=== PATIENT | male | born 1955 | race Caucasian/White ===

== ENCOUNTER 2019-06-14 23:49 | Emergency (ER) | payer MEDICARE ==
[~2019-06-14] VITALS: Ht 185.4 cm; Wt 115.9 kg
--- NOTE | 2019-06-15 00:06 | NUR ---
Last void approx. 1800, frequency has decreased in the past 24 hours. Pt has been taking PO Bactrim for 2 days with pain relief, but urinary output has decreased immensely since taking the abx. Pt says pain is now 5/10 with little to intermittent blood drops in the urine. Pt states he feels he has a full belly, nontender, but firm.
[2019-06-15 01:01] LABS: CLARITY,URINE CLEAR (Clear); COLOR,URINE YELLOW (Yellow); GLUCOSE, URINE NEGATIVE (Neg); KETONES,URINE NEGATIVE (Neg); LEUKOCYTE ESTERASE ,URINE NEGATIVE (Neg); NITRITES, URINE NEGATIVE (Neg); OCCULT BLOOD,URINE MODERATE (Neg); PROTEIN,URINE NEGATIVE (Neg); UROBILINOGEN,URINE 0.2 E.U/dL (0.2-1.0)
[2019-06-15 01:09] LABS: BACTERIA,URINE NONE SEEN /HPF (Neg); SQUAMOUS EPITHELIAL CELL,UR FEW /LPF (FEW); UA COLLECTION TYPE NON-SPECIFIED; WBC,URINE NONE SEEN /HPF (0-4)
[2019-06-15 02:20] VITALS: BP 121/70
== END 2019-06-15 02:23 | disposition home or self-care (01) ==
LOC: ER 23:50
DX: R33.9 Retention of urine, unspecified (principal)
CPT/HCPCS: 51702; 81001; 99284

== ENCOUNTER 2019-06-17 11:26 | Emergency (ER) | payer MEDICARE ==
[~2019-06-17] VITALS: Ht 185.4 cm; Wt 118.0 kg
[2019-06-17 11:27] VITALS: BP 160/102
[2019-06-17] MEDS ORDERED: FLO0.4C PO (13:31)
== END 2019-06-17 13:59 | disposition home or self-care (01) ==
LOC: ER 11:26
DX: Z46.6 Encounter for fitting and adjustment of urinary device (principal); Z79.899 Other long term (current) drug therapy
CPT/HCPCS: 99283

== ENCOUNTER 2019-10-31 21:30 | Emergency (ER) | payer MEDICARE ==
[~2019-10-31] VITALS: Ht 180.3 cm; Wt 113.0 kg
--- NOTE | 2019-10-31 22:21 | NUR ---
PT HAS A COLMENARES CATH IN PLACE. LAST PLACED WAS 3 MONTHS AGO IN JULY. THEY HAVE NOT CHANGED IT OUT SINCE. THEY WERE WENT WITH URINARY BAGS. THEY WERE NOT AWARE OF NEEDING IT TO BE CHANGED QMONTH.
[2019-10-31] MEDS ORDERED: LIDOcaine 2% 10ml TOPICAL JELLY (Urojet) MM STA (23:03)
[2019-10-31 23:11] LABS: ALANINE AMINOTRANSFERASE 25 U/L (12-78); ALBUMIN 4.1 G/DL (3.4-5.0); ALBUMIN/GLOBULIN RATIO 1.1 (1.1-1.5); ALKALINE PHOSPHATASE 558 IU/L (46-116); ANION GAP 9 (8-16); ASPARTATE AMINO TRANSFERASE 18 U/L (10-37); BILIRUBIN,TOTAL 0.5 MG/DL (0.1-1.0); BLOOD UREA NITROGEN 17 MG/DL (7-18); BUN/CREATININE RATIO 16.7 (5.4-32.0); CALCIUM 9.6 MG/DL (8.5-10.1); CHLORIDE 104 MMOL/L (99-107); CREATININE 1.02 MG/DL (0.60-1.10); GLUCOSE 119 MG/DL (70-104); POTASSIUM 4.2 MMOL/L (3.5-5.1); SODIUM 139 MMOL/L (135-145); TOTAL CARBON DIOXIDE 26.3 MMOL/L (24-32); TOTAL PROTEIN 7.7 G/DL (6.4-8.2); eGFR 73 ML/MIN
[2019-10-31 23:12] LABS: BASOPHILS # (AUTO) 0.1 X10'3 (0-0.2); BASOPHILS % (AUTO) 0.7 % (0-1); EOSINOPHILS # (AUTO) 0.2 X10'3 (0-0.9); EOSINOPHILS % (AUTO) 2.9 % (0-6); HEMATOCRIT 42.9 % (42.0-52.0); HEMOGLOBIN 15.1 g/dl (14.0-17.9); LYMPHOCYTES # (AUTO) 1.6 X10'3 (1.1-4.8); LYMPHOCYTES % (AUTO) 19.6 % (21-51); MEAN CORPUSCULAR HEMOGLOBIN 32.1 PG (27.0-31.0); MEAN CORPUSCULAR HGB CONC 35.3 g/dL (33.0-36.5); MEAN CORPUSCULAR VOLUME 91.1 FL (78-98); MEAN PLATELET VOLUME 9.6 FL (7.4-10.4); MONOCYTES # (AUTO) 0.5 X10'3 (0-0.9); MONOCYTES % (AUTO) 5.8 % (2-12); NEUTROPHILS # (AUTO) 5.7 X10'3 (1.8-7.7); PLATELET COUNT 145 X10'3 (140-440); RED BLOOD COUNT 4.71 X10'6 (4.70-6.10); RED CELL DISTRIBUTION WIDTH 13.8 % (11.5-14.5)
[2019-10-31 23:40] VITALS: BP 158/102
[2019-10-31 23:57] LABS: COLOR,URINE YELLOW (Yellow); GLUCOSE, URINE NEGATIVE (Neg); KETONES,URINE NEGATIVE (Neg); LEUKOCYTE ESTERASE ,URINE NEGATIVE (Neg); NITRITES, URINE POSITIVE (Neg); OCCULT BLOOD,URINE LARGE (Neg); PROTEIN,URINE NEGATIVE (Neg); UROBILINOGEN,URINE 0.2 E.U/dL (0.2-1.0)
[2019-11-01] LABS: CLARITY,URINE SLIGHTLY CLOUDY (Clear); UA COLLECTION TYPE STRAIGHT CATH
[2019-11-01 00:05] LABS: BACTERIA,URINE NONE SEEN /HPF (Neg); MUCUS STRANDS NONE SEEN /LPF (Neg); RBC,URINE 20-50 /HPF (0-2); SQUAMOUS EPITHELIAL CELL,UR NONE SEEN /LPF (FEW); WBC,URINE 0-4 /HPF (0-4)
--- NOTE | 2019-11-01 00:19 | NUR ---
alcantar cath in placed. draining well. prior to alcnatar placement pt was unable to void.
--- NOTE | 2019-11-04 14:20 | NUR ---
CALL TO PATIENT REGARDING LAB RESULTS. LEFT MESSAGE FOR RETURN CALL
--- NOTE | 2019-11-05 08:22 | NUR ---
Patients called back, notified her regarding need for patient to be placed on antibiotic due to positive urine culture. Request Rx of macrobid 100 mg PO bid x7 days to be placed with [facility] in [place]. Rx called in to pharmacist.
== END 2019-11-01 00:43 | disposition home or self-care (01) ==
LOC: ER 21:31
DX: R33.9 Retention of urine, unspecified (principal); R10.30 Lower abdominal pain, unspecified; N48.89 Other specified disorders of penis; Z85.46 Personal history of malignant neoplasm of prostate
CPT/HCPCS: 36415; 51702; 80053; 81001; 81003; 85025; 87077; 87088; 87186; 99284